=== PATIENT | female | born 1950 | race Caucasian/White ===

== ENCOUNTER 2017-12-29 13:07 | Outpatient (CLI) | payer BC | END 2017-12-29 13:08 | disposition home or self-care (01) | LOC: BICMAMMO 13:07 | PROVIDERS: ATTEND Family Medicine | DX: Z12.31 Encounter for screening mammogram for malignant neoplasm of breast (principal); R92.1 Mammographic calcification found on diagnostic imaging of breast | CPT/HCPCS: 77063; 77067 ==

== ENCOUNTER 2019-01-03 09:53 | Outpatient (CLI) | payer BC ==
--- NOTE | 2019-01-03 11:29 | MMO ---
Bilateral MAMMO Bilat Screen [facility]. CLINICAL HISTORY: Patient is 68 years old and is seen for screening. The patient has no family history of breast cancer. The patient has no personal history of cancer. VIEWS: The views performed were: bilateral craniocaudal with tomosynthesis; bilateral mediolateral oblique with tomosynthesis; and cleavage view. FILMS COMPARED: The present examination has been compared to prior imaging studies performed at [facility] on 10/26/2014, 11/04/2015, 12/17/2016 and 12/29/2017. This study has been interpreted with the assistance of computer-aided detection. MAMMOGRAM FINDINGS: There are scattered fibroglandular densities. There are no suspicious masses, suspicious calcifications, or new areas of architectural distortion. IMPRESSION: THERE IS NO MAMMOGRAPHIC EVIDENCE OF MALIGNANCY. A ROUTINE FOLLOW-UP MAMMOGRAM IN 1 YEAR IS RECOMMENDED. THE RESULTS OF THIS EXAM WERE SENT TO THE PATIENT. ACR BI-RADS Category 1 - Negative MAMMOGRAPHY NOTE: 1. A negative mammogram report should not delay a biopsy if a dominant of clinically suspicious mass is present. 2. Approximately 10% to 15% of breast cancers are not detected by mammography. 3. Adenosis and dense breasts may obscure an underlying neoplasm. Reported by: PEG ROSSI MD Electonically Signed: [id number]
== END 2019-01-03 09:54 | disposition home or self-care (01) ==
LOC: BICMAMMO 09:53
PROVIDERS: ATTEND Family Medicine
DX: Z12.31 Encounter for screening mammogram for malignant neoplasm of breast (principal)
CPT/HCPCS: 77063; 77067

== ENCOUNTER 2020-01-05 09:58 | Outpatient (CLI) | payer BC ==
--- NOTE | 2020-01-05 10:26 | MMO ---
Bilateral MAMMO Bilat Screen [facility]. CLINICAL HISTORY: Patient is 69 years old and is seen for screening. The patient has no family history of breast cancer. The patient has no personal history of cancer. VIEWS: The views performed were: bilateral craniocaudal with tomosynthesis and bilateral mediolateral oblique with tomosynthesis. FILMS COMPARED: The present examination has been compared to prior imaging studies performed at [facility] on 11/04/2015, 12/17/2016, 12/29/2017 and 01/03/2019. This study has been interpreted with the assistance of computer-aided detection. MAMMOGRAM FINDINGS: There are scattered fibroglandular densities. There are no suspicious masses, suspicious calcifications, or new areas of architectural distortion. IMPRESSION: THERE IS NO MAMMOGRAPHIC EVIDENCE OF MALIGNANCY. A ROUTINE FOLLOW-UP MAMMOGRAM IN 1 YEAR IS RECOMMENDED. THE RESULTS OF THIS EXAM WERE SENT TO THE PATIENT. ACR BI-RADS Category 1 - Negative MAMMOGRAPHY NOTE: 1. A negative mammogram report should not delay a biopsy if a dominant of clinically suspicious mass is present. 2. Approximately 10% to 15% of breast cancers are not detected by mammography. 3. Adenosis and dense breasts may obscure an underlying neoplasm. Reported by: PEG ROSSI MD Electonically Signed: [id number]
== END 2020-01-05 09:59 | disposition home or self-care (01) ==
LOC: BICMAMMO 09:58
PROVIDERS: ATTEND Family Medicine
DX: Z12.31 Encounter for screening mammogram for malignant neoplasm of breast (principal)
CPT/HCPCS: 77063; 77067

== ENCOUNTER 2021-01-07 13:03 | Outpatient (CLI) | payer BC | END 2021-01-07 13:04 | disposition home or self-care (01) | LOC: BICMAMMO 13:03 | PROVIDERS: ATTEND Family Medicine | DX: Z12.31 Encounter for screening mammogram for malignant neoplasm of breast (principal); N63.10 Unspecified lump in the right breast, unspecified quadrant | CPT/HCPCS: 77063; 77067 ==

== ENCOUNTER 2021-01-09 09:30 | Outpatient (CLI) | payer BC | END 2021-01-09 09:31 | disposition home or self-care (01) | LOC: BICMAMMO 09:30 | PROVIDERS: ATTEND Family Medicine | DX: N63.15 Unspecified lump in the right breast, overlapping quadrants (principal) | CPT/HCPCS: G0279 ==

== ENCOUNTER → 2021-01-28 | Day surgery (SDC) | payer BC | LOC: BICULT 12:47 | PROVIDERS: ATTEND Family Medicine | PROC: 0HBT3ZX Excision of Right Breast, Percutaneous Approach, Diagnostic (ICD-10-PCS; principal; 2021-01-28) | DX: C50.811 Malignant neoplasm of overlapping sites of right female breast (principal) | CPT/HCPCS: 19083; 88305; 88341; 88342 ==

== ENCOUNTER 2021-02-24 15:19 | Outpatient (CLI) | payer BC ==
[2021-02-24 16:34] LABS: #Basophils 0.1 10x3/uL (0.0-0.2); #Eosinphils 0.1 10x3/uL (0.0-0.5); #Monocytes 0.5 10x3/uL (0.0-1.1); #Neutrophils 5.2 10x3/uL (1.5-8.4); %Basophils 0.7 % (0.0-2.0); %Eosinophils 1.2 % (0.0-6.0); %Lymphocytes 24.2 % (18.0-47.0); %Monocytes 5.9 % (0.0-10.0); %Neutrophils 67.6 % (40.0-75.0); Hemoglobin 12.9 g/dL (12.0-15.5); Mean Corpuscular HGB CONC 32.3 g/dL (32.0-36.0); Mean Corpuscular Hemoglobin 28.2 pg (27.0-33.0); Mean Corpuscular Volume 87.3 fl (81.6-98.3); Mean Platelet Volume 10.6 fl (7.4-10.4); Platelet Count 263 10x3/uL (150-450); RBC Distribution Width 13.4 % (11.5-14.5); Red Blood Cell (RBC) Count 4.57 10x6/uL (3.90-5.03); White Blood Cell (WBC) Count 7.7 10x3/uL (3.5-10.5)
[2021-02-24 16:43] LABS: Anion Gap 14 mmol/L (10-20); BUN (Urea Nitrogen) 18 mg/dL (9.8-20.1); Calc. Creatinine Clearance 0 mL/min (70-130); Calcium 9.3 mg/dL (7.8-10.44); Carbon Dioxide 24 mmol/L (23-31); Chloride 106 mmol/L (98-107); Glucose 103 mg/dL (83-110); Potassium 4.2 mmol/L (3.5-5.1); Sodium 140 mmol/L (136-145)
[2021-02-25 00:27] LABS: SARS-CoV-2 PCR by NAA Not Detected (NotDetected)
== END 2021-02-24 15:20 | disposition home or self-care (01) ==
LOC: LABBT 15:19
PROVIDERS: ATTEND Surgery
DX: Z01.818 Encounter for other preprocedural examination (principal); C50.911 Malignant neoplasm of unspecified site of right female breast; Z20.822 Contact with and (suspected) exposure to COVID-19
CPT/HCPCS: 80048; 85025; 93005; 93010; U0003; U0005

== ENCOUNTER 2021-02-28 06:29 | Day surgery (SDC) | payer BC ==
[2021-02-26 12:42] VITALS: BMI 31.8
[2021-02-28] MEDS ORDERED: Ondansetron PF 4 MG/2 ML Vial ONE (11:33)
[2021-02-28] MEDS ORDERED: ePHEDrine 50 MG/ML VIAL ONE (11:33)
[2021-02-28] MEDS ORDERED: PROPOFOL 200 MG/20 ML VIAL ONE (11:33)
[2021-02-28] MEDS ORDERED: Lidocaine 1% PF 5 ML VIAL ONE (11:33)
[2021-02-28] MEDS ORDERED: Dexamethasone 20 MG/5 ML VIAL ONE (11:33)
== END 2021-02-28 14:28 | disposition home or self-care (01) ==
LOC: MAMMO 06:29 → SDC 14:28
PROVIDERS: ATTEND Surgery
PROC: 0HTT0ZZ Resection of Right Breast, Open Approach (ICD-10-PCS; principal; 2021-02-28)
PROC: 07B50ZX Excision of Right Axillary Lymphatic, Open Approach, Diagnostic (ICD-10-PCS; principal; 2021-02-28)
DX: D05.11 Intraductal carcinoma in situ of right breast (principal); K21.9 Gastro-esophageal reflux disease without esophagitis; E78.5 Hyperlipidemia, unspecified; I10 Essential (primary) hypertension; Z90.710 Acquired absence of both cervix and uterus; Z98.890 Other specified postprocedural states; Z79.899 Other long term (current) drug therapy
CPT/HCPCS: 19281; 19285; 76098; 78195; 88307; 88342; A9541; C1889; J1100; J2405; J2704; J3490

== ENCOUNTER 2021-05-19 10:17 | Outpatient (CLI) | payer BC | END 2021-05-19 10:18 | disposition home or self-care (01) | LOC: BICMAMMO 10:17 | PROVIDERS: ATTEND Internal Medicine Hematology & Oncology | DX: M85.80 Other specified disorders of bone density and structure, unspecified site (principal); C50.111 Malignant neoplasm of central portion of right female breast; T38.6X5A Adverse effect of antigonadotrophins, antiestrogens, antiandrogens, not elsewhere classified, initial encounter | CPT/HCPCS: 77080 ==

== ENCOUNTER 2022-01-14 10:19 | Outpatient (CLI) | payer BC | END 2022-01-14 10:20 | disposition home or self-care (01) | LOC: BICMAMMO 10:19 | PROVIDERS: ATTEND Internal Medicine Hematology & Oncology | DX: C50.111 Malignant neoplasm of central portion of right female breast (principal); R92.1 Mammographic calcification found on diagnostic imaging of breast; R92.2 Inconclusive mammogram; Z98.890 Other specified postprocedural states | CPT/HCPCS: 77066; G0279 ==

== ENCOUNTER 2022-07-27 14:51 | Outpatient (CLI) | payer BC | END 2022-07-27 14:52 | disposition home or self-care (01) | LOC: BICMAMMO 14:51 | PROVIDERS: ATTEND Internal Medicine Hematology & Oncology | DX: C50.111 Malignant neoplasm of central portion of right female breast (principal); T38.6X5A Adverse effect of antigonadotrophins, antiestrogens, antiandrogens, not elsewhere classified, initial encounter | CPT/HCPCS: 77080 ==

== ENCOUNTER 2023-01-25 08:42 | Outpatient (CLI) | payer BC | END 2023-01-25 08:43 | disposition home or self-care (01) | LOC: BICMAMMO 08:42 | PROVIDERS: ATTEND Internal Medicine Hematology & Oncology | DX: C50.111 Malignant neoplasm of central portion of right female breast (principal) | CPT/HCPCS: 77066; G0279 ==

== ENCOUNTER 2024-02-22 13:11 | Outpatient (CLI) | payer BC | END 2024-02-22 13:12 | disposition home or self-care (01) | LOC: BICMAMMO 13:11 | PROVIDERS: ATTEND Nurse Practitioner Adult Health | DX: Z08 Encounter for follow-up examination after completed treatment for malignant neoplasm (principal); Z85.3 Personal history of malignant neoplasm of breast | CPT/HCPCS: 77066; G0279 ==

== ENCOUNTER 2024-04-17 09:36 | Outpatient (CLI) | payer BC | END 2024-04-17 09:37 | disposition home or self-care (01) | LOC: BICMAMMO 09:36 | PROVIDERS: ATTEND Internal Medicine Hematology & Oncology | DX: Z13.820 Encounter for screening for osteoporosis (principal); C50.111 Malignant neoplasm of central portion of right female breast | CPT/HCPCS: 77080 ==

== ENCOUNTER 2025-04-10 11:42 | Outpatient (CLI) | payer BC | END 2025-04-10 11:43 | disposition home or self-care (01) | LOC: BICMAMMO 11:42 | PROVIDERS: ATTEND Internal Medicine Hematology & Oncology | DX: Z13.820 Encounter for screening for osteoporosis (principal); C50.111 Malignant neoplasm of central portion of right female breast | CPT/HCPCS: 77080 ==